=== PATIENT | male | born 1965 | race Caucasian/White ===

== ENCOUNTER 2018-02-01 17:05 | Emergency (ER) | payer SELFPAY ==
[~2018-02-01] VITALS: Ht 172.7 cm; Wt 86.2 kg
[2018-02-01] MEDS ORDERED: GABA300 PO (17:37)
[2018-02-01] MEDS ORDERED: BP MED (17:37)
[2018-02-01] MEDS ORDERED: Keflex500 MG PO (18:40)
== END 2018-02-01 18:46 | disposition home or self-care (01) ==
LOC: ER 17:05
DX: S61.211A Laceration without foreign body of left index finger without damage to nail, initial encounter (principal); I10 Essential (primary) hypertension; W27.0XXA Contact with workbench tool, initial encounter
CPT/HCPCS: 73140; 99282